=== PATIENT | male | born 1990 | race American Indian/Alaskan Native ===

== ENCOUNTER 2016-11-27 16:11 | Emergency (ER) | payer SELFPAY ==
[2016-11-27 16:41] VITALS: BP 132/92
[2016-11-27 17:19] LABS: Basophils % (Auto) 0.6 % (0.0-1.8); Eosinophils % (Auto) 2.1 % (0.0-4.3); Hematocrit 46.6 % (35.5-45.6); Hemoglobin 15.4 gm/dl (11.8-15.2); Mean Corpuscular HGB Conc 33 % (32-34); Mean Corpuscular Hemoglobin 30 pg (28-32); Mean Corpuscular Volume 90 fl (84-94); Platelet Count 231 K/mm3 (140-440); Red Blood Count 5.19 M/mm3 (3.65-5.03); Red Cell Distribution Width 14.6 % (13.2-15.2)
--- NOTE | 2016-11-27 17:23 | Cat Scan Report ---
FINAL REPORT PROCEDURE: CT HEAD/BRAIN WO CON TECHNIQUE: Computerized tomography of the head was performed without contrast material. HISTORY: neuro deficits \T\lt; 6hrs or sx present upon awakening COMPARISON: No prior studies are available for comparison. FINDINGS: Brain: Brain density appears normal. No evidence of intracranial hemorrhage. No parenchymal hemorrhage, mass lesions or mass effect are seen. No abnormal extraxial fluid collects or masses are seen. Ventricles: Ventricles are normal size and are midline. Bone Windows: No evidence of skull fracture. Paranasal sinuses: Clear Mastoid air cells: Clear IMPRESSION: Negative exam.
[2016-11-27 17:29] LABS: INR 1.02 (0.87-1.13)
[2016-11-27 17:29] LABS: Anion Gap 17 mmol/L; BUN/Creatinine Ratio 9.16; Blood Urea Nitrogen 11 mg/dL (9-20); Calcium 9.4 mg/dL (8.4-10.2); Carbon Dioxide 27 mmol/L (22-30); Chloride 100.3 mmol/L (98-107); Glucose 101 mg/dL (75-100); Potassium 3.9 mmol/L (3.6-5.0); Sodium 140 mmol/L (137-145)
[2016-11-27 17:30] LABS: Partial Thromboplastin Time 33.2 Sec. (24.2-36.6)
--- NOTE | 2016-11-30 14:13 | ED Elopement Review ---
ED Pt Elopement review - Results review Lab results: Laboratory Tests 11/27/16 11/27/16 11/27/16 16:49 16:52 16:56 WBC 8.0 RBC 5.19 H Hgb 15.4 H Hct 46.6 H MCV 90 MCH 30 MCHC 33 RDW 14.6 Plt Count 231 Lymph % (Auto) 30.8 [place] % (Auto) 7.4 H Eos % (Auto) 2.1 Baso % (Auto) 0.6 Lymph # 2.5 [place] # 0.6 Eos # 0.2 Baso # 0.0 Seg Neutrophils % 59.1 Seg Neutrophils # 4.7 PT 13.3 INR 1.02 APTT 33.2 Thrombin Time Sodium Potassium Chloride Carbon Dioxide Anion Gap BUN Creatinine Estimated GFR BUN/Creatinine Ratio Glucose POC Glucose 92 Calcium Troponin T 11/27/16 11/27/16 16:56 16:56 WBC RBC Hgb Hct MCV MCH MCHC RDW Plt Count Lymph % (Auto) [place] % (Auto) Eos % (Auto) Baso % (Auto) Lymph # [place] # Eos # Baso # Seg Neutrophils % Seg Neutrophils # PT INR APTT Thrombin Time 17.6 Sodium 140 Potassium 3.9 Chloride 100.3 Carbon Dioxide 27 Anion Gap 17 BUN 11 Creatinine 1.2 Estimated GFR > 60 BUN/Creatinine Ratio 9.16 Glucose 101 H POC Glucose Calcium 9.4 Troponin T < 0.010 - Call Back decision Pt Call Back Decision: No action required
== END 2016-11-27 21:32 | disposition left against medical advice (07) ==
LOC: ED 16:11
DX: I10 Essential (primary) hypertension (principal); H53.8 Other visual disturbances; R11.10 Vomiting, unspecified; Z53.21 Procedure and treatment not carried out due to patient leaving prior to being seen by health care provider
CPT/HCPCS: 36415; 70450; 80048; 82962; 84484; 85025; 85610; 85670; 85730; 93005; 93010

== ENCOUNTER 2020-01-01 17:11 | Emergency (ER) | payer SELFPAY ==
[2020-01-01 19:00] VITALS: BP 134/83
[2020-01-01] MEDS ORDERED: AMOXICILLIN/K CLAV 875/125MG TAB PO ONE (19:20)
[2020-01-01] MEDS ORDERED: HYDROcodone/ACETAMINOPHEN 5-325 MG TAB PO ONE (19:20)
--- NOTE | 2020-01-01 19:56 | Emergency Department Report ---
ED ENT HPI - General Chief complaint: Dental/Oral Stated complaint: MOUTH PAIN Time Seen by Provider: 01/01/20 19:19 Source: patient Mode of arrival: Ambulatory Limitations: No Limitations - History of Present Illness Initial comments: Ms. Davis is a 29-year-old -Luxembourger male who presents with dental pain . X1 week has history of chronic dental caries. States pain today is 7/10 aching sharp. He endorses mild gum swelling there is no stridor no shortness of breath no wheezing. No ear pain. Patient is tolerating p.o. intake with no acute distress. Symptoms are exacerbated by hot and cold stimuli. Symptoms are relieved by NSAIDs PRN. MD complaint: tooth pain Onset/Timin -: week(s) Location: tooth # (5) Severity: moderate Quality: aching Consistency: constant Improves with: none Worsens with: eating Context- Dental: history of dental caries, poor dental care Associated Symptoms: toothache - Related Data Previous Rx's Medication Instructions Recorded Last Taken Type DOXYCYCLINE Hyclate [Vibramycin 100 mg PO Q12HR #20 capsule 01/11/16 Unknown Rx CAP] Amoxicillin [Trimox CAP] 500 mg PO Q8H 10 Days #30 capsule 01/01/20 Unknown Rx Chlorhexidine Mouthwash [Peridex] 15 ml MM BID #1 bottle 01/01/20 Unknown Rx traMADoL [Ultram] 50 mg PO Q6HR PRN #12 tablet 01/01/20 Unknown Rx Allergies Allergy/AdvReac Type Severity Reaction Status Date / Time No Known Allergies Allergy Verified 01/11/16 19:46 ED Dental HPI - General Chief complaint: Dental/Oral Stated complaint: MOUTH PAIN Time Seen by Provider: 01/01/20 19:19 Source: patient Mode of arrival: Ambulatory Limitations: No Limitations - Related Data Previous Rx's Medication Instructions Recorded Last Taken Type DOXYCYCLINE Hyclate [Vibramycin 100 mg PO Q12HR #20 capsule 01/11/16 Unknown Rx CAP] Amoxicillin [Trimox CAP] 500 mg PO Q8H 10 Days #30 capsule 01/01/20 Unknown Rx Chlorhexidine Mouthwash [Peridex] 15 ml MM BID #1 bottle 01/01/20 Unknown Rx traMADoL [Ultram] 50 mg PO Q6HR PRN #12 tablet 01/01/20 Unknown Rx Allergies Allergy/AdvReac Type Severity Reaction Status Date / Time No Known Allergies Allergy Verified 01/11/16 19:46 ED Review of Systems ROS: Stated complaint: MOUTH PAIN Other details as noted in HPI Constitutional: denies: chills, fever Eyes: denies: eye pain, eye discharge, vision change ENT: dental pain. denies: ear pain, throat pain Respiratory: denies: cough, shortness of breath, wheezing Cardiovascular: denies: chest pain, palpitations Endocrine: no symptoms reported Gastrointestinal: denies: abdominal pain, nausea, diarrhea Genitourinary: denies: urgency, dysuria Musculoskeletal: denies: back pain, joint swelling, arthralgia Skin: denies: rash, lesions Neurological: denies: headache, weakness, paresthesias Psychiatric: denies: anxiety, depression Hematological/Lymphatic: denies: easy bleeding, easy bruising ED Past Medical Hx - Past Medical History Previous Medical History?: Yes Hx Hypertension: Yes - Surgical History Past Surgical History?: Yes Additional Surgical History: right arm [id number] - Social History Smoking Status: Never Smoker Substance Use Type: None - Medications Home Medications: Home Medications Medication Instructions Recorded Confirmed Last Taken Type DOXYCYCLINE Hyclate [Vibramycin 100 mg PO Q12HR #20 capsule 01/11/16 Unknown Rx CAP] Amoxicillin [Trimox CAP] 500 mg PO Q8H 10 Days #30 capsule 01/01/20 Unknown Rx Chlorhexidine Mouthwash [Peridex] 15 ml MM BID #1 bottle 01/01/20 Unknown Rx traMADoL [Ultram] 50 mg PO Q6HR PRN #12 tablet 01/01/20 Unknown Rx ED Physical Exam - General Limitations: No Limitations General appearance: alert, in no apparent distress - Head Head exam: Present: atraumatic, normocephalic - Eye Eye exam: Present: normal appearance, PERRL, EOMI Pupils: Present: normal accommodation - ENT ENT exam: Present: normal exam, TM's normal bilaterally, normal external ear exam - Expanded ENT Exam Expanded Ear exam: Present: normal external inspection Mouth exam: Present: drooling. Absent: trismus Teeth exam: Present: dental caries, dental tenderness # (5) Throat exam: Positive: normal inspection. Negative: tonsillar erythema, tonsillomegaly, tonsillar exudate, R peritonsillar mass, L peritonsillar mass - Neck Neck exam: Present: normal inspection, full ROM. Absent: tenderness, meningismus, lymphadenopathy - Respiratory Respiratory exam: Present: normal lung sounds bilaterally. Absent: respiratory distress, wheezes, stridor, chest wall tenderness - Cardiovascular Cardiovascular Exam: Present: regular rate, normal rhythm, normal heart sounds. Absent: systolic murmur, diastolic murmur, rubs, gallop - GI/Abdominal GI/Abdominal exam: Present: soft. Absent: distended, tenderness, bruit - Rectal Rectal exam: Present: deferred - Extremities Exam Extremities exam: Present: normal inspection, full ROM. Absent: tenderness - Back Exam Back exam: Present: normal inspection, full ROM. Absent: tenderness, vertebral tenderness, rash noted - Neurological Exam Neurological exam: Present: alert, oriented X3, CN II-XII intact, normal gait, reflexes normal - Psychiatric Psychiatric exam: Present: normal affect, normal mood - Skin Skin exam: Present: warm, dry, intact, normal color. Absent: rash ED Course Vital Signs 01/01/20 01/01/20 01/01/20 17:49 17:50 18:58 Temperature 98.7 F 98.7 F Pulse Rate 58 L 63 61 Respiratory 18 18 14 Rate Blood Pressure 166/98 134/83 Blood Pressure 166/98 [Right] O2 Sat by Pulse 100 100 100 Oximetry ED Medical Decision Making - Medical Decision Making infected dental carries plan: amoxicillin, ultram, peridex follow up with dentist in 2-3 days. return to emergency if symptoms worsen. Critical care attestation.: If time is entered above; I have spent that time in minutes in the direct care of this critically ill patient, excluding procedure time. ED Disposition Clinical Impression: Infected dental carries Disposition: TO HOME OR SELFCARE Is pt being admited?: No Does the pt Need Aspirin: No Condition: Stable Instructions: Dental Caries (ED) Prescriptions: Chlorhexidine Mouthwash [Peridex] 15 ml MM BID #1 bottle Amoxicillin [Trimox CAP] 500 mg PO Q8H 10 Days #30 capsule traMADoL [Ultram] 50 mg PO Q6HR PRN #12 tablet PRN Reason: Pain Forms: Work/School Release Form(ED) Time of Disposition: 20:01
== END 2020-01-01 20:18 | disposition home or self-care (01) ==
LOC: ED 17:11
DX: K02.9 Dental caries, unspecified (principal)
CPT/HCPCS: 99282